=== PATIENT | female | born 1965 | race Caucasian/White ===

== ENCOUNTER 2024-07-27 07:34 | Outpatient (OUT) | payer OTHER, SELFPAY ==
--- NOTE | 2024-07-27 07:37 | MM_ITS ---
Patient Name: SIS PAYAN MR#: [id number] : 1965 Exam Date: 07/27/2024 Ordering Doctor: DR SOLANGE MALLORY RADIOLOGY REPORT PROCEDURE: MM TOMOSYNTHESIS SCREENING BI COMPARISON: MG MAMM SCREEN 3D OSCAR CAD, 11/08/2021. MG MAMM SCREEN 3D OSCAR CAD, 05/21/2020. MG MAMM SCREEN 3D OSCAR CAD, 04/21/2019. MG MAMM SCREEN 3D OSCAR CAD, 12/18/2017. INDICATIONS: Screening Calculator Name NCI Breast Cancer Risk Assessment Tool 5 Year Breast Cancer Risk 1.30% Lifetime Breast Cancer Risk 8.00% Personal Breast Cancer No Personal Ovarian Cancer No Treatments None Family Cancers None LOCATION: [facility] BREAST COMPOSITION: There are scattered areas of fibroglandular density. FINDINGS: DIAGNOSTIC CATEGORY 2--BENIGN FINDING: RIGHT BREAST: No significant suspicious finding. No significant change has occurred. LEFT BREAST: No significant suspicious finding. Scattered benign-appearing calcifications are present. No significant change has occurred. RECOMMENDATIONS: ROUTINE MAMMOGRAM AND CLINICAL EVALUATION IN 12 MONTHS. PLEASE NOTE: A NORMAL MAMMOGRAM DOES NOT EXCLUDE THE POSSIBILITY OF BREAST CANCER. A CLINICALLY SUSPICIOUS PALPABLE LUMP SHOULD BE BIOPSIED. Dictated by: Fortino Maldonado M.D. on 07/27/2024 at 14:42 Approved by: Fortino Maldonado M.D. on 07/27/2024 at 14:43
== END 2024-07-27 07:35 | disposition home or self-care (01) ==
LOC: MAMMO 07:34
PROVIDERS: PCP Family Medicine; Visit Provider Obstetrics & Gynecology
DX: Z12.31 Encounter for screening mammogram for malignant neoplasm of breast (principal)
CPT/HCPCS: 77063; 77067